=== PATIENT | female | born 1995 | race Asian ===

== ENCOUNTER → 2018-06-16 | Outpatient (CLI) | payer BC | LOC: MC.RAD 14:15 | DX: N63.12 Unspecified lump in the right breast, upper inner quadrant (principal) ==

== ENCOUNTER 2020-09-08 10:55 | Emergency (ER) | payer OTHER ==
[~2020-09-08] VITALS: Ht 165.1 cm; Wt 75.9 kg
--- NOTE | 2020-09-08 11:25 | NUR ---
Note time on EFM off. Patient applied to EFM at 1125. Patient denies contractions, abdominal pain, leaking of fluid or vaginal bleeding. Reports normal movement. Denies OB concerns. Kick counts and labor precautions reviewed. Encouraged to follow up with OB as scheduled or with concerns.
[2020-09-08 11:49] LABS: BASO % 0.3 % (0.0-2.0); EOS # 0.1 (0.0-0.7); EOS % 0.4 % (0-4.0); GRAN # 11.4 (1.4-6.5); GRAN % 84.4 % (42.2-75.2); LYMPH % 7.4 % (20.0-51.0); MEAN CELL VOLUME 69 fl (80.0-100.0); MEAN CORPUSCULAR HGB CONC 27 g/dl (33.0-37.0); MEAN PLATELET VOLUME 9.1 fl (7.4-10.4); MONO # 0.9 (0.1-0.6); MONO % 6.7 % (1.7-9.3); PLATELET COUNT 312 K/mm3 (130-400); RED BLOOD COUNT 3.03 M/mm3 (4.10-5.30)
[2020-09-08 11:57] LABS: HEMATOCRIT 20.9 % (37.0-47.0); HEMOGLOBIN 5.7 g/dl (12.5-16.0); MEAN CORPUSCULAR HEMOGLOBIN 19 pg (27.0-31.0)
[2020-09-08 12:03] LABS: BILIRUBIN,TOTAL 0.2 mg/dL (0.0-1.0); CREATININE, serum 0.33 (0.52-1.25); POTASSIUM 3.4 mmol/L (3.4-5.0); TOTAL PROTEIN 6.3 gm/dL (6.4-8.2)
[2020-09-08 13:34] LABS: COLLECTION METHOD CLEAN CATCH
[2020-09-08 13:39] LABS: MUCOUS Present /lpf; PH 8 (5-8); URINE APPEARANCE Hazy; URINE BACTERIA None Seen /hpf; URINE BILIRUBIN Negative (NEGATIVE); URINE BLOOD Negative (NEGATIVE); URINE COLOR Yellow; URINE GLUCOSE Negative (NEGATIVE); URINE KETONE Negative (NEGATIVE); URINE LEUKOCYTE ESTERASE Negative (NEGATIVE); URINE NITRATE Negative (NEGATIVE); URINE PROTEIN(semi-quant) Negative (NEGATIVE); URINE RBC 0-2 /hpf; URINE UROBILINOGEN Negative (NEGATIVE)
[2020-09-08 14:35] VITALS: BP 111/63; PULSE 102; TEMP 97.9
[2020-09-08] MEDS ORDERED: PRENATAL TABLET PO (16:01)
[2020-09-08] MEDS ORDERED: CLARITIN 1010 MG/TAB PO (16:01)
== END 2020-09-08 15:00 | disposition home or self-care (01) ==
LOC: COL.ER 10:55
PROVIDERS: Family Medicine
DX: O99.012 Anemia complicating pregnancy, second trimester (principal); Z3A.28 28 weeks gestation of pregnancy
CPT/HCPCS: J7120

== ENCOUNTER 2020-09-08 15:15 | Outpatient (CLI) | payer OTHER ==
[~2020-09-08] VITALS: Ht 165.1 cm; Wt 75.7 kg
[2020-09-08] VITALS (8 sets, daily range): BP systolic 95–111; BP diastolic 49–77; PULSE 100–116; TEMP 97.8–98.2
[2020-09-08] MEDS ORDERED: CLARITIN 1010 MG/TAB PO (16:01)
[2020-09-08] MEDS ORDERED: PRENATAL TABLET PO (16:01)
--- NOTE | 2020-09-08 19:09 | NUR ---
PT HAS TOLERATED TRANSFUSION OF 2 UNITS PRBC WITHOUT ANY EVIDENCE OF ALLERGIC OR ADVERSE REACTION. PT HAS BEEN UP TO BR WITH STEADY GAIT AND REPORTS FEELING BETTER. PT ADVISED, PER DR. FLOREZ, TO FU WITH HER OB PRACTITIONER AND TO START TAKING PO IRON SUPPLEMENTATION 325 MG BID, OR DIRECTED BY HER OBGYN MD. PT PROVIDED WITH A WORK NOTE EXCUSING PT FROM WORK TODAY AND TOMMOROW 09/09/[address] FLOREZ. IV DC'D WITH CATH INTACT. DRESSING APPLIED. PT TO EXIT VIA WHEELCHAIR.
== END 2020-09-08 19:19 | disposition home or self-care (01) ==
LOC: EUO 15:15
DX: D50.9 Iron deficiency anemia, unspecified (principal)
CPT/HCPCS: P9016